=== PATIENT | male | born 1950 | race Caucasian/White ===

== ENCOUNTER 2016-08-31 10:39 | Inpatient (IN) | payer MEDICARE, BC ==
[~2016-08-31] VITALS: Ht 172.7 cm; Wt 80.1 kg
[~2016-08-31 10:39] MED LIST: ACAMPROSATE CA333 MG PO; COREG25 MG PO; DIFLUCAN DPS100 MG PO; DUONEB DPS3 ML IH; FLOMAX DPS0.4 MG PO; FLONASE 0.05% D16 GM NS; FOLIC ACID1 MG PO; GUAIFENESIN400 MG PO; HABITROL DPS21 MG TP; IMODIUM DPS2 MG PO; LEXAPRO DPS20 MG PO; MAGOX 400400 MG PO; MULTIPLE VITAM1 EACH PO; NEURONTIN DPS300 MG PO; NEURONTIN DPS400 MG PO; PEPCID DPS20 MG PO; POTASSIUM CHLO20 ME2 PO; PROTONIX40 MG PO; SPIRIVA18 MCG IH; SYMBICORT160 MCG/6 IH; TYLENOL DPS325 MG PO; VITAMIN B1100 MG PO; ZOCOR DPS20 MG PO
--- NOTE | 2016-09-02 10:52 | CO ---
ADMIT: 08/31/2016 RM/LOC: 309 [facility] MR#: [id number] [address] [address] PIOTR KNIGHT [facility] [place] [address] Consultation SEX: M AGE: 66 : 1950 DATE OF CONSULTATION: 08/31/2016 ATTENDING PHYSICIAN: Pipo Fountain CONSULTING PHYSICIAN: Haroldo Harrell MD REASON FOR CONSULTATION: Acute kidney injury. HISTORY OF PRESENT ILLNESS: The patient is a 66-year-old gentleman, who normally gets his care through the [facility]. He was admitted to the hospital earlier this year in May as well with GI bleed. He presents to the hospital now with weakness and diarrhea that has been going on for about 7 days. He has had no fevers, chills, or rigors. He has not had any brissa blood in his stools, but notes that his stools have been somewhat dark. He denies any dyspnea or cardiac complaints. He has been terribly weak and has not been able to eat anything orally. He has been drinking more 3/4 of a pint of vodka every day. He continues to smoke cigarettes on a daily basis. History is also obtained from his as well as his daughter, who are at his bedside. At the time of this encounter, he feels weak. Denies any skin rash. Denies any urinary complaints. He denies any [id number] medications. He feels weak, has diarrhea. Denies any vomiting. He has been having dry heaves. He has some nausea too. Complete review of systems is negative in detail except as mentioned in history of present illness above. PAST MEDICAL HISTORY: 1. Hypertension. 2. Coronary artery disease, status post bypass. 3. Chronic alcohol abuse. 4. Tobacco abuse. 5. COPD. 6. Depression. 7. Allergic rhinitis. 8. Gastroesophageal reflux disease. 9. Dyslipidemia. 10.BPH. MEDICATIONS: Reviewed and addressed in the chart. ALLERGIES: NO KNOWN DRUG ALLERGIES. SOCIAL HISTORY: He lives with his in [place]. He has a history of alcoholism as well as tobacco abuse. FAMILY HISTORY: No family history of chronic kidney disease or renal replacement therapy. ADMIT: 08/31/2016 RM/LOC: 309 [facility] MR#: [id number] [address] [address] PIOTR KNIGHT [address] [address] Consultation SEX: M AGE: 66 : 1950 PHYSICAL EXAMINATION: VITAL SIGNS: Temperature 99.6 Fahrenheit, pulse 92, and blood pressure is 87/60. GENERAL: He appears tired and is lying in bed. HEENT: Head is nontraumatic and normocephalic. Extraocular movements are intact. No conjunctival pallor. Dry mucosa. CHEST: Clear to auscultation. CVS: Tachycardic. S1, S2 heard. No rubs, murmurs, or gallops. ABDOMEN: Soft, nontender. EXTREMITIES: No edema. SKIN: No rash or nodules. NEUROLOGIC: Alert, awake, and oriented x3. He is able to move all his extremities. PSYCHIATRIC: Affect and memory within normal. LABORATORY DATA: Reviewed. BMP with sodium 130, potassium 3.2, creatinine is 1.9, hemoglobin 12.2, and albumin 2.9. Urinalysis with 1+ protein, trace blood, and negative leukocyte esterase. ASSESSMENT/PLAN: 1. Acute kidney injury - baseline creatinine is around 0.9. Acute kidney injury is prerenal in etiology. I agree with IV fluids and pressor support. Maintain hemodynamics to keep maps greater than 60 mmHg. Monitor kidney function closely. Avoid nephrotoxins such as NSAIDs, IV contrast, or Fleet enemas. 2. Hyponatremia - monitor. Likely secondary to volume depletion. 3. Hypokalemia - replete with potassium chloride. Thank you for this consultation. Please do not hesitate to contact with any questions. Haroldo Harrell MD/ tamara JOB #: [id number] CC: Pipo Fountain, Attending Physician Pipo Fountain, Family Physician
--- NOTE | 2016-09-03 10:08 | CO ---
ADMIT: 08/31/2016 RM/LOC: 309 [facility] MR#: [id number] [address] [facility] [address] [place] [id number] EUGENE PIOTR [place] [address] Consultation SEX: M AGE: 66 : 1950 DATE OF CONSULTATION: 08/31/2016 ATTENDING PHYSICIAN: Pipo Fountain CONSULTING PHYSICIAN: Devon Solorio MD ADDENDUM: Mr. Yap is seen, examined, and I have reviewed the chart, laboratory studies, CT scan. Currently, he denies any abdominal pain but has had diarrhea for a couple of weeks now. The last 2 days, he has had black stool with that. He has had some nausea and vomiting but no vomiting since admission. CT scan at admission suggested possible mesenteric ischemia. On exam, he has minimal abdominal tenderness and bowel sounds are present and normoactive. His lactic acid was mildly elevated at admission but not severely so. These things including his exams make ischemic bowel less likely. I have recommended proceeding with esophagogastroduodenoscopy for further evaluation of the antral and duodenal thickening seen on CT scan as well as the dark stool that he has had over the last couple of days and the anemia that he has had. He had an EGD demonstrating duodenal ulcers in May of this year. He is on current proton pump inhibitor therapy inpatient but had not been taking that as an outpatient. I discussed proceeding with EGD with Mr. Yap and he agrees with that plan. We will have further plan pending his progress. We will repeat his lactic acid levels tonight and in the morning to continue to evaluate for ischemic bowel. I have also reviewed Calixto Bonner's note and I am in agreement with his assessment, plan, and documentation. Devon Solorio MD/ tamara JOB #: [id number] CC: Pipo Fountain, Attending Physician Pipo Fountain, Family Physician
--- NOTE | 2016-09-05 21:37 | ER ---
ADMIT: 08/31/2016 RM/LOC: 309 [facility] MR#: [id number] [address] [address] IRVIN YAP [address] [place] [id number] Emergency Room Report SEX: M AGE: 66 : 1950 DATE: 08/31/2016 Irvin Yap is a 66-year-old gentleman brought to the hospital because of increasing weakness, which has been present for the past several days. It has gotten substantially worse to the point where he is now unable to get out of bed and his is no longer able to care for him. The gentleman himself has no complaints. His states he is excessively weak. He readily admits to drinking 750 mL of alcohol a day, vodka. Says he last drank yesterday. Complaining of some greenish diarrhea, but denied abdominal pain. He has had similar symptoms in the past, but never to this severity. REVIEW OF SYSTEMS: Significant for dark urine and generalized weakness. PAST HISTORY: Cardiac disease, he has had cardiac bypass. He has hypertension. He is an alcoholic and smokes heavily. PHYSICAL EXAMINATION: GENERAL: Reveals an elderly gentleman, in mild-to- moderate amount of distress. Generalized weakness noted. HEENT: Normocephalic and atraumatic. RESPIRATORY: Lungs were clear to auscultation. CARDIOVASCULAR: No murmurs. Regular rate and rhythm. ABDOMEN: Soft, nontender, with hypoactive bowel tones. EXTREMITIES: Without clubbing, cyanosis, or edema. MANAGER GAMES: No focal findings. Generalized weakness. LABORATORY DATA: Pertinent labs revealed white count 12.8, hemoglobin 12.9. Sodium 125, potassium 3.4, bicarb 20, BUN 38, creatinine 2.2, calcium 6.6, albumin 2.9, and lipase 532. Corrected calcium was 7.5. Parathyroid hormone was 181. Chest x-ray was unremarkable. Lactic acid 1.9. Hemoccult stool was positive. CT scan of the abdomen was suspicious for mesenteric ischemia with pneumatosis. The scan was limited, however, the IV contrast could not be given secondary to renal function. The patient remained hypotensive throughout his stay in the emergency room, was given IV hydration. I did discuss his care with Dr. Fountain who agreed to ICU admission. I also spoke with Dr. Solorio with the results of the CT scan. He recommended continued fluid resuscitation, Zosyn was begun in the Emergency Department. The patient was subsequently admitted with diagnoses of mesenteric ischemia, acute renal failure, and hypocalcemia. Linden Jones MD/ tamara JOB #: [id number] CC: Pipo Fountain MD, Attending Physician Pipo Fountain MD, Family Physician
[2016-09-08] MEDS ORDERED: CARAFATE DPS1 GM PO (14:06)
[2016-09-08] MEDS ORDERED: ASPIRIN EC81 MG PO (14:13)
--- NOTE | 2016-09-09 08:37 | HP ---
ADMIT: 08/31/2016 RM/LOC: 309 [facility] MR#: [id number] [address] [address] IRVIN KNIGHT [address] [place] [address] History and Physical SEX: M AGE: 66 : 1950 DATE OF SERVICE: 08/31/2016 CHIEF COMPLAINT: Diarrhea, hypotension. HISTORY OF PRESENT ILLNESS: Irvin is a 66-year-old white male, who came to the [facility] Emergency Department with the progressively worsening dizziness, fatigue, and diarrhea over the course of about a week to week and a half. He estimates he has been having 5-6 watery stools every day over the course of the last week. He has not been eating well. He does have a history of chronic alcohol abuse and dependence. He has been through treatment several times for this, but has not had any significant success with remission of his alcoholism. Several of his stools have been dark black and one of his stools down in the emergency department was found to be heme positive. In addition, on his initial evaluation through the ER, he was markedly hypotensive with blood pressures in the 70s over 40s and much of his hypotension was refractory to fluid resuscitation with normal saline. He is currently on a Levophed drip to maintain his MAPs around 60. Irvin was recently admitted to the hospital by my partner, Dr. Suresh as a [facility] patient back in May. At that time, he was having some coffee- grounds emesis. Workup during that hospitalization included an upper GI endoscopy showing candidal esophagitis and a nonbleeding duodenal ulcer. At the time of his discharge in May, he was recommended to go to [facility] for rehab. He did go to [facility] for very short period of time and then ultimately to the [facility] for drug and alcohol counseling. He only stayed for a week and then discharged himself AMA. PAST MEDICAL HISTORY: Remarkable for: 1. Alcohol dependence. 2. Chronic obstructive pulmonary disease. 3. History of duodenal ulcer. 4. History of candidal esophagitis. 5. Depression. 6. Gastroesophageal reflux disease. 7. Seasonal allergic rhinitis. 8. Hypertension. 9. Benign prostatic hypertrophy. 10.Hyperlipidemia. 11.Coronary artery disease, status post bypass. 12.Chronic tobacco abuse. PAST SURGICAL HISTORY: Upper GI endoscopy in May of 2016. ALLERGIES: NO KNOWN MEDICAL ALLERGIES. MEDICATIONS: His outpatient medications include: 1. Acamprosate 666 mg t.i.d. 2. ProAir two puffs q.4 hours p.r.n. 3. Tylenol 650 mg two tabs q.6 p.r.n. ADMIT: 08/31/2016 RM/LOC: 309 [facility] MR#: [id number] [address] [address] IRVIN KNIGHT [address] [place] [address] History and Physical SEX: M AGE: 66 : 1950 4. Aspirin 81 mg daily. 5. Symbicort 160, two puffs twice daily. 6. Carvedilol 25 mg twice daily. 7. Lexapro 20 mg daily. 8. Pepcid 20 mg daily. 9. Flonase 2 sprays in each nostril daily. 10.Folic acid 1 mg daily. 11.Neurontin 300 mg at bedtime. 12.Guaifenesin 400 mg tablets q.i.d. 13.Hydrochlorothiazide 12.5 mg daily. 14.Multivitamin daily. 15.Protonix 40 mg daily. 16.Simvastatin 20 mg at bedtime. 17.Flomax 0.4 mg at bedtime. 18.Thiamine 100 mg daily. 19.Spiriva 1 puff daily. SOCIAL HISTORY: He continues to drink in upwards of 3/4 of a pint of vodka every day. He is also smoker of approximately 1-1/2 packs per day over the last several years. He lives alone in [place]. He denies any other recreational drug use. FAMILY HISTORY: Noncontributory. REVIEW OF SYSTEMS: As per HPI. All others reviewed are negative. PHYSICAL EXAMINATION: VITAL SIGNS: Current blood pressure is 96/70 and that is on a Levophed drip. Pulse is 96, respirations 20, temp 99.6, O2 saturation is 94% on oxygen via nasal cannula. GENERAL: He is not in particularly talkative mood at this time. Most of his history is actually obtained from his , who is at the bedside and from previous documentation. He is appropriate with his responses. He does appear to be depressed. HEENT: Normocephalic, atraumatic. NECK: Supple. No lymphadenopathy. No thyromegaly. HEART: Regular rate and rhythm. No murmurs, gallops, or rubs. LUNGS: Clear to auscultation bilaterally. ABDOMEN: Distended, soft, nontender. No rebound, guarding, or masses. EXTREMITIES: No significant cyanosis, clubbing, or edema. LABORATORY AND X-RAY DATA: Hemoglobin since admission have been stable at 11.2, this is just down a little bit from his admission hemoglobin of 12.2. Procalcitonin was 1.6. Lactic acid was 1.9. CMP remarkable for a potassium of 3.1, sodium of 125, CO2 of 20, BUN of 38, creatinine 2.2. Calcium 6.6, phos was 3. AST is 54, lipase 532, magnesium 2.2. Occult blood test was positive. PT, PTT, INR remarkable only for a mildly elevated PTT at 32. Repeat BMP shows potassium to be 3.2 and a sodium of 130, creatinine has come down to 1.9 with aggressive IV fluid resuscitation. CT of his abdomen and ADMIT: 08/31/2016 RM/LOC: 309 [facility] MR#: [id number] [address] [address] [address]VIN KNIGHT [address] [place] [address] History and Physical SEX: M AGE: 66 : 1950 pelvis shows findings concerning for possible changes of mesenteric ischemia, moderate amount of generalized fluid infiltration throughout the mesenteric fat, abnormally thickened small bowel loops, suspected pneumatosis intestinalis in the left upper quadrant, and a possible distal gastric wall thickening, duodenal thickening, gastritis, and duodenitis is difficult to exclude. He has fatty infiltration of the liver. Stable left adrenal nodule. Diverticulosis of the colon without diverticulitis. ASSESSMENT: 1. Shock, likely secondary to dehydration from his diarrhea. 2. Alcohol abuse and dependence. 3. Acute kidney injury secondary to hypotension with a baseline creatinine about 1. 4. Hypokalemia, this is being replaced. 5. Acute pancreatitis secondary to his chronic alcohol abuse and dependence. 6. Heme-positive stools. 7. History of duodenal ulcer. 8. History of candidal esophagitis. 9. Chronic obstructive pulmonary disease. 10.Depression, poorly controlled. 11.Gastroesophageal reflux disease. 12.Seasonal allergic rhinitis. 13.Hypertension. 14.Benign prostatic hyperplasia. 15.Hyperlipidemia. 16.Chronic tobacco abuse. PLAN: Irvin will remain in the ICU until his hemodynamic compromise is improved. We are going to continue aggressive IV hydration. He will remain on a Levophed drip and we will titrate that to a MAP of 60. We will get an ADTC and a Social Work consult. I have started him on the CIWA protocol for his alcohol abuse and dependence as I suspect he is going to start withdrawing here in the next 24-48 hours. His last drink was about 24 hours ago. 1. With regard to his kidney injury, this is improving with IV hydration. We will recheck a BMP in the morning. 2. Hypokalemia, this is being replaced. Again, we will recheck his electrolytes in the morning and replace. I have started him on IV thiamine and folic acid as well as intravenous mag and a multivitamin ADMIT: 08/31/2016 RM/LOC: 309 [facility] MR#: [id number] [address] [address] IRVIN KNIGHT John [address] [place] [address] History and Physical SEX: M AGE: 66 : 1950 through his IV. 3. As for his heme-positive stools, General Surgery has been consulted. They are considering on upper and lower GI endoscopy in the morning, provided that hemodynamically he is stable. I am going to recheck a lipase in the morning and trend this down. He is n.p.o. at this time, so bowel rest hopefully will help with his lipase. He is advised that he needs to quit smoking and also advised that unless he make some changes with his lifestyle and choices he is making, his alcohol use and abuse is going to kill him. He indicated an understanding though, I do not get a good sense from him that he has any desire to change or quit at this point. I do wonder how his poorly-controlled depression is contributing to his willingness to accept this diagnosis and do something about it. Pipo Fountain MD/ tamara JOB #: [id number] CC: Pipo Fountain, Attending Physician Pipo Fountain, Family Physician
--- NOTE | 2016-09-09 08:41 | DS ---
ADMIT: 08/31/2016 RM/LOC: 402 [facility] MR#: [id number] [address] [address] IRVIN YAP [facility] [place] [address] Discharge Summary SEX: M AGE: 66 : 1950 ADMISSION DATE: 08/31/2016 DISCHARGE DATE: 09/07/2016 ADMITTING DIAGNOSES: 1. Hypovolemic shock. 2. Acute upper GI (gastrointestinal) bleed. 3. Alcohol abuse and dependence. 4. Acute kidney injury secondary to hypovolemic shock. 5. Hypokalemia. 6. Acute alcoholic pancreatitis. 7. Heme-positive stools. 8. History of duodenal ulcer. 9. History of candidal esophagitis. 10.Chronic obstructive pulmonary disease. 11.Depression. 12.Gastroesophageal reflux disease. 13.Seasonal allergic rhinitis. 14.Hypertension. 15.Benign prostatic hypertrophy. 16.Hyperlipidemia. 17.Chronic tobacco abuse. DISCHARGE DIAGNOSES: 1. Hypovolemic shock, resolved, likely secondary to a combination of diarrhea and upper GI (gastrointestinal) bleed. 2. Alcohol abuse and dependence. 3. Acute kidney injury secondary to hypotension, now resolved. 4. Hypokalemia. 5. Acute alcoholic pancreatitis, resolved. 6. Heme-positive stools. 7. Alcoholic gastritis without active hemorrhage. 8. Grade 1 nonbleeding esophageal varices. 9. Hypophosphatemia. 10.Hypokalemia. 11.Hypomagnesemia. 12.Urinary retention. 13.Benign prostatic hypertrophy. 14.History of duodenal ulcer. 15.History of candidal esophagitis. 16.Chronic obstructive pulmonary disease. 17.Depression. 18.Gastroesophageal reflux disease. 19.Seasonal allergic rhinitis. 20.Hypertension. 21.Benign prostatic hypertrophy. 22.Hyperlipidemia. 23.Chronic tobacco abuse. CONSULTATIONS: ADMIT: 08/31/2016 RM/LOC: 402 [facility] MR#: [id number] [address] [address] [place] [address] Discharge Summary SEX: M AGE: 66 : [address] Solorio, general surgery, consulted 08/31/2016 for upper GI bleed. 2. Dr. Harrell, nephrology, consulted on 08/31/2016 for an acute kidney injury. 3. Dr. Osuna, Critical Care Medicine, consulted on 08/31/2016. PROCEDURES: Upper GI endoscopy performed by Dr. Willie Nice, general surgery, on 09/01/2016 showing moderate to significant gastritis, no antral ulcers, grade 1 esophageal varices and no evidence of active hemorrhage, pathology showing reactive gastritis, negative for H pylori. HISTORY AND PHYSICAL EXAM: Mr. Yap is a 66-year-old gentleman, [facility], who [facility] to [facility] Emergency Department on 08/31/2016 with progressively worsening dizziness, fatigue and diarrhea over the course of about a week to a week and a half. He estimates that he had been having 5-6 watery stools every day over the course of that week and not eating very well. He has a history of chronic alcohol abuse and dependence and drinks in upwards of a bottle of vodka every day. He has apparently been through drug and alcohol treatment several times without any success or remission in his alcoholism. He notes that several of his stools had been dark black and one of his stools in the Emergency Department was found to be heme positive. His initial exam in the emergency department was remarkable for blood pressures with systolics in the 70s and diastolics in the 40s and this was despite aggressive fluid resuscitation with intravenous fluids. Irvin had been admitted by my partner, Dr. Suresh, approximately three months prior with upper GI bleeding secondary to his chronic alcohol abuse and dependence and at that time it he was recommended that he go to [facility] for rehab. By he and his 's report however he only stayed for about a week of rehab and then discharged himself AMA and went back to drinking. On his initial exam, his blood pressure was 96/70 on a Levophed drip and having had 2 L of colloid his pulse was 96, respirations were 20, he was afebrile and his O2 saturation was 94% on 2-3 L of oxygen nasal cannula. On his initial exam and indeed throughout his hospital stay he was not particularly talkative and much of his history was obtained from his . On his initial exam, hemoglobin was 11.2, ProcalAmine negative, lactic acid was 1.9. CMP showed a potassium of 3.12. Creatinine was 2.2. His baseline was about 1. Lipase was elevated at 532. Occult blood test was positive. Coags were unremarkable. CT of his abdomen and pelvis was suggestive for possible mesenteric ischemia with moderate amounts of generalized fluid infiltration throughout the mesenteric fat, abnormally thickened small bowel loops and suspected pneumatosis intestinalis in the left upper quadrant. He also had evidence of diverticulosis without diverticulitis and a stable left adrenal nodule. Irvin was subsequently admitted to the hospital to the ICU for further management, fluid resuscitation and for surgical consultation as well as Critical Care consult. HOSPITAL COURSE: Irvin's blood pressures were stabilized with a combination of intravenous colloid and Levophed. His blood pressure improved within 24 ADMIT: 08/31/2016 RM/LOC: 402 [facility] MR#: [id number] [address] [place] [id number] IRVIN YAP [address] [place] [address] Discharge Summary SEX: M AGE: 66 : 1950 hours and we were able to wean him off the Levophed drip. Dr. Harrell with Nephrology was consulted and did follow. Irvin's kidney function improved with the intravenous fluids. Throughout his hospital stay, he had problems with hypokalemia, hypomagnesemia and hypophosphatemia. Much of this was thought to be nutritional along with his problems with his diarrhea that he had had prior to admission. He remained very noncommittal about getting drug and alcohol treatment. He was evaluated by [facility] and recommendation was made that should he desire further drug and alcohol treatment that he should get these services through the [place]. Irvin was transferred out of the ICU on approximately day three to four of his admission. He was transferred to a med/surg bed. He had no further melanotic stools and his hemoglobins remained stable. He did have problems with hypoxemia requiring 3-4 L of oxygen throughout his hospital stay. However, we were able to wean that down to 1-2 L prior to discharge. He had problems with chronic cough also throughout his hospital stay and on his exam findings were suggestive for COPD with markedly diminished breath sounds and wheezing. He was started on prednisone, Zithromax and his inhaled corticosteroids and Spiriva were continued. He also did receive 2-3 doses of intravenous Lasix for small pleural effusions and interstitial edema. Irvin was evaluated by physical therapy and occupational therapy throughout his hospital stay. He had generalize malaise, deconditioning and weakness and his was concerned that he would not be able to meet his needs at home without additional care and help, which she did not think she could provide. A recommendation was made for him to go to skilled rehab for further rehabilitation. Finally, Irvin had issues with urinary retention following his ICU stay. Attempts were made to remove his Fuentes catheter which was placed on admission for strict intake and output purposes. However despite taking his Fuentes out, he had problems with urinary retention. Postvoid residual was up in the 600- 800 mL range despite being on his Flomax. A decision was made to replace his Fuentes catheter. Dr. French with Urology was consulted and recommended simply leaving the Fuentes catheter in for a period of 1 week and for further management of this as an outpatient. By the morning of 09/07/2016, Irvin was stable. It was felt that he could safely be discharged to [facility] with further management as an outpatient by his [place] provider. Discharge condition is poor. His overall health is poor, much of this is secondary to his chronic alcohol and tobacco use, both of which he was advised he needed to quit. DISPOSITION: He is being discharged to [facility]. DISCHARGE MEDICATIONS: Discharge medications will include: 1. Carafate 1 g before every meal. 2. Coreg 25 mg b.i.d. ADMIT: 08/31/2016 RM/LOC: 402 [facility] MR#: [id number] [address] [address] IRVIN YAP [address] [place] [address] Discharge Summary SEX: M AGE: 66 : 1950 3. Flomax 0.4 mg every night. 4. Folic acid 1 mg daily. 5. Lexapro 20 mg daily. 6. Magnesium oxide 400 mg p.o. b.i.d. 7. Neurontin 300 mg every night. 8. Protonix 40 mg b.i.d. 9. Therapeutic multivitamin daily. 10.Thiamine 100 mg daily. 11.Zocor 20 mg every night. 12.Symbicort 160, two puffs b.i.d. 13.DuoNeb every 4 hours. 14.Spiriva 1 puff daily. 15.Flonase 2 sprays in each nostril daily. 16.Tylenol 650 mg q.4 p.r.n. pain. 17.Acamprosate 666 mg t.i.d. 18.Aspirin 81 mg daily. 19.Guaifenesin 400 mg q.i.d. p.r.n. FOLLOWUP: I have asked that he follow up with his [facility] provider, Ph[facility] Deg[facility], within the week and that he should have a CBC, BMP, Mag phos and a chest x-ray prior to that appointment. Also asked that he follow up with Dr. French with urology within the weeks for further management of his Fuentes catheter. Pipo Fountain MD/ diane JOB #: [id number] CC: Pipo Fountain MD, Attending Physician Pipo Fountain MD, Family Physician
--- NOTE | 2016-09-12 19:26 | CO ---
ADMIT: 08/31/2016 RM/LOC: 309 [facility] MR#: [id number] [address] [address] PIOTR KNIGHT [facility] [place] [address] Consultation SEX: M AGE: 66 : 1950 DATE OF CONSULTATION: 08/31/2016 ATTENDING PHYSICIAN: Pipo Fountain CONSULTING PHYSICIAN: Lamin Osuna MD REASON FOR CONSULTATION: Hypertension, critical care management, possible GI bleed-ischemic bowel. HISTORY OF PRESENT ILLNESS: This is a 66-year-old white male, who is not a very good historian. The patient apparently has been having problems with getting up and around. He said this has been going on for couple of weeks. His has to help him. All he does is going to the bathroom and comes back. He has been having a lot of diarrhea on and off dating back at least six months. He had last was, maybe, a week or so, it has been black and tarry. The patient denied any vomiting or hematemesis. Denies hemoptysis. Does have some shortness of breath. No chest pain. The patient denies fever or chills. The patient does have a history of ethanol abuse and tobacco use. He smoked, he said, a pack and a half a day. He has been smoking at least from the age of 19. PAST MEDICAL HISTORY: History of chronic ethanol abuse; history of chronic tobacco abuse; COPD; history of coffee-grounds emesis in the past; coronary artery disease, status post CABG; chronic depression; allergic rhinitis; chronic pain; history of chronic diarrhea; history of GERD; hyperlipidemia; and BPH. MEDICATIONS: Reviewed and documented in chart. Switched from MDIs to Nicoleb. REVIEW OF SYSTEMS: All intake sheet reviewed, nil of note than in HIP. ALLERGIES: NO KNOWN MEDICAL ALLERGIES. SOCIAL HISTORY: The patient's tobacco use as mentioned above. Has a long history of chronic ethanol abuse. He continues to drink daily. FAMILY HISTORY: Reviewed and noncontributory. PHYSICAL EXAMINATION: VITAL SIGNS: His blood pressure was in the low 90s. MAP is in 72. His blood pressure on admission to the ER was low in the mid 70s. The patient has been given at least 4 L of fluids. He started on Levophed. His pulse is 92, respirations in the mid teens. He was afebrile. Saturation initially was 94% on room air, but it has been trending down and he is now on 2 L of O2. HEENT: Did not show any acute changes. NECK: Supple. No nodes felt. RESPIRATORY SYSTEM: Showed fair breath sounds. No adventitious sounds. CARDIOVASCULAR SYSTEM: Showed S1-S2, regular rate and rhythm. ABDOMEN: Distended, nontender. Liver and spleen could not be felt. No masses ADMIT: 08/31/2016 RM/LOC: 309 [facility] MR#: [id number] [address] [place] [phone] [place] [address] Consultation SEX: M AGE: 66 : 1950 felt. CENTRAL NERVOUS SYSTEM: He was awake, able to move all four limbs. Did not appear to have any focal neurological signs. EXTREMITIES: Showed no cyanosis, clubbing, jaundice, or edema. LABORATORY DATA: His hemoglobin is 12.2, white count was 12.8, and platelet count of 93%. INR of 1.03. PTT 32. His creatinine is 2.2. Calcium 6.6. Sodium 125 and potassium 3.1. Lactate 1.9. Lipase is mildly elevated. CT scan of his abdomen and pelvis was noted, consider changes of mesenteric ischemia. Diffuse fatty infiltration of the liver was noted. CT scan of his chest showed no acute changes. ASSESSMENT AND PLAN: 1. Hypertension, probably secondary to #2. Continue fluid resuscitation but would defer any further boluses because of his renal function. Renal will monitor fluids. Continue Levophed. Keep MAP above 65. 2. Black tarry stools, probably gastrointestinal bleed. Awaiting endoscopy. 3. Hypoxemia. Continue O2. 4. Avufc-yn-oqkagni renal failure. 5. History of chronic obstructive pulmonary disease. Continue tobacco use. Agree with switching him to DuoNeb. 6. Ethanol abuse. 7. Coronary artery disease, status post coronary artery bypass graft. 8. Problems with moving around-myopathy. Need to consider alcohol-related neurological disease. 9. Gastroesophageal reflux disease. Thank you for giving me the opportunity to be involved in his care. Should you have any questions, please feel free to get in touch with me. Lamin Osuna MD/ tamara JOB #: [id number] CC: Pipo Fountain, Attending Physician Pipo Fountain, Family Physician
--- NOTE | 2016-09-13 20:44 | CO ---
ADMIT: 08/31/2016 RM/LOC: 309 [facility] MR#: [id number] [address] [address] IRVIN KNIGHT [address] [place] [address] Consultation SEX: M AGE: 66 : 1950 DATE OF CONSULTATION: 08/31/2016 ATTENDING PHYSICIAN: Pipo Fountain CONSULTING PHYSICIAN: Devon Solorio MD REASON FOR CONSULTATION: Weakness and shortness of breath. HISTORY OF PRESENT ILLNESS: Irvin is a very pleasant 66-year-old male, who states that for the last 2 weeks has noticed ongoing weakness and shortness of breath. It has gotten to the point where he cannot walk, but 5 steps before his symptoms are produced. He also has his assist him getting from a sitting to a standing position. He also noticed dark stools approximately 2 days ago. He denies any pain, nausea, vomiting, diarrhea, or constipation. Because of his symptoms, he came in through the ER, which at that time had a full workup and overall did not look like the patient was doing well. He had a white count. His hemoglobin dropped. Fecal blood test was positive, and CAT scan of his abdomen revealed kind of some generalized inflammation specifically around the pancreas. Small bowel with some possible pneumatosis. Please see below. The patient denies taking any blood thinning medications. He has had previous EGD and colonoscopy before. PAST MEDICAL HISTORY: Significant for GERD, peptic ulcer disease, COPD, coronary artery disease, depression, allergic rhinitis, hyperlipidemia, BPH, chronic pain, and diarrhea. PAST SURGICAL HISTORY: 1. Last EGD was on 05/29/2016, which showed fungal esophagitis, nonbleeding ulcers, and hiatal hernia. 2. Heart stent in 2009. 3. Four-vessel bypass in 2009. 4. Surgery for subarachnoid hemorrhage. 5. Ventral hernia repair. 6. Appendectomy. 7. Colonoscopy. ALLERGIES: NO KNOWN DRUG ALLERGIES. MEDICATIONS: The patient denies any blood thinning medications, but he does take an 80 mg aspirin daily. FAMILY HISTORY: Noncontributory. SOCIAL HISTORY: The patient is an alcohol and tobacco user. Drinks 3/4 of a 750 daily and smokes 1-1/2 packs a day. He denies any illicit drug use. REVIEW OF SYSTEMS: CONSTITUTIONAL: The patient denies any fever, chills, or night sweats. The rest of a comprehensive 10-point review of systems was performed, and all other systems are negative. ADMIT: 08/31/2016 RM/LOC: 309 [facility] MR#: [id number] [address] [address] IRVIN KNIGHT [address] [place] [id number] Consultation SEX: M AGE: 66 : 1950 PHYSICAL EXAMINATION: GENERAL: The patient is in no acute distress. He is alert and oriented. HEENT: Head is normocephalic and atraumatic. EOMS are intact. Conjunctivae are free of icterus, erythema, or pallor. Pinnae free of deformities. Nose is midline. No tracheal deviation. NECK: Supple. SKIN: Negative for jaundice, clubbing, edema, pallor, or cyanosis. LUNGS: Normal respiratory effort. HEART: Distal pulses intact. Hypotensive. Regular rate and rhythm. ABDOMEN: Soft, nondistended, and nontender. NEUROLOGIC: Grossly intact. DIAGNOSTIC IMAGING: CT of abdomen pelvis revealed fat stranding small amount of peripancreatic fluid with generalized mesenteric fat stranding as well, gastric wall thickening with distal stomach and proximal duodenum, multifocal areas of small bowel wall thickening, and possible pneumatosis involving loops of jejunum. LABORATORY DATA: Hemoglobin currently 11.2 down from 12.2. Occult blood positive. Lactic acid 1.9. CMP revealed creatinine 2.2 and lipase 532. ASSESSMENT: 1. Upper gastrointestinal bleed. 2. Pancreatitis. 3. Possible ischemic bowel. PLAN: Given the patient's condition, he has been started on pressors and admitted to the ICU. We will watch his hemoglobins, but due to the rate of drop, I am going to plan to put him on for EGD for Dr. Solorio tomorrow morning. His creatinine is elevated, so hopefully with dilution, in a few days we can repeat a CT abdomen and pelvis with contrast to further assess the pathology in his abdomen. In the meantime, we will continue the IV antibiotics Protonix and follow him closely. I discussed this plan with the patient and his , who was present during my assessment. They are in agreement of this plan, had all their questions answered and would like to proceed. Thank your for the consultation of this patient. ITZEL Gaona / Devon Solorio MD / tamara JOB #: [id number] CC: Pipo Fountain, Attending Physician Pipo Fountain, Family Physician
--- NOTE | 2016-09-15 13:26 | OR ---
ADMIT: 08/31/2016 RM/LOC: 309 [facility] MR#: [id number] [address] [address] PIOTR KNIGHT [address] [place] [address] Operative/Delivery Room Report SEX: M AGE: 66 : 1950 SURGERY DATE: 09/01/2016 SURGEON: Willie Nice MD PREOPERATIVE DIAGNOSES: Question of gastrointestinal bleed and anemia. POSTOPERATIVE DIAGNOSES: Moderate to significant gastritis. No antral ulcers. Grade 1 esophageal varices. No signs of bleeding. PROCEDURE: EGD with biopsy of the gastric antrum, rule out H. pylori. ANESTHESIA: MAC anesthesia. ESTIMATED BLOOD LOSS: Less than 5 mL. INDICATION FOR PROCEDURE: Please see H and P. DESCRIPTION OF PROCEDURE: After the risks, benefits, possible complications, and the alternatives had been explained, and informed consent had been obtained, the patient was taken back to the operating room, underwent sedation. The flexible EGD scope was introduced. The distal esophagus as seen in picture #1, hiatal hernia in picture #4, maneuvered through these through the stomach down into the second portion of the duodenum. The duodenum was inspected thoroughly. No signs of ulcers there. He had some back in May. The gastric antrum does show moderate amount of gastritis, but no actual ulcers or no signs of active bleeding and I did do biopsies here. The remainder of the stomach was inspected without any other mass or lesions noted. The scope was slowly withdrawn. There was, like I said, kind of a grade 1 varices, but no signs of any other significant bleeding or esophagitis. The scope was removed and the procedure terminated. Tolerated it well, was taken to recovery room in stable and satisfactory condition. Willie Nice MD/ tamara JOB #: [id number] CC: Pipo Fountain, Attending Physician Pipo Fountain, Family Physician
== END 2016-09-07 14:43 | DRG 377 ==
LOC: ER 10:39 → 4PCU 12:25 → 3ICU 12:25 → 4PCU 09-02 10:17
PROVIDERS: ADMIT Family Medicine
PROC: HZ2ZZZZ Detoxification Services for Substance Abuse Treatment (ICD-10-PCS; 2016-08-31)
PROC: 0DB68ZX Excision of Stomach, Via Natural or Artificial Opening Endoscopic, Diagnostic (ICD-10-PCS; principal; 2016-09-01)
DX: K92.1 Melena (principal); K85.20 Alcohol induced acute pancreatitis without necrosis or infection; R57.1 Hypovolemic shock; N17.9 Acute kidney failure, unspecified; L89.313 Pressure ulcer of right buttock, stage 3; J44.9 Chronic obstructive pulmonary disease, unspecified; E86.0 Dehydration; E87.1 Hypo-osmolality and hyponatremia; K29.20 Alcoholic gastritis without bleeding; I85.10 Secondary esophageal varices without bleeding; R19.7 Diarrhea, unspecified; E87.6 Hypokalemia; I12.9 Hypertensive chronic kidney disease with stage 1 through stage 4 chronic kidney disease, or unspecified chronic kidney disease; N18.9 Chronic kidney disease, unspecified; R09.02 Hypoxemia; F10.20 Alcohol dependence, uncomplicated; E83.39 Other disorders of phosphorus metabolism; E83.42 Hypomagnesemia; N40.1 Benign prostatic hyperplasia with lower urinary tract symptoms; R33.9 Retention of urine, unspecified; E83.51 Hypocalcemia; I25.2 Old myocardial infarction; F32.9 Major depressive disorder, single episode, unspecified; F17.210 Nicotine dependence, cigarettes, uncomplicated; K21.9 Gastro-esophageal reflux disease without esophagitis; J30.9 Allergic rhinitis, unspecified; M19.90 Unspecified osteoarthritis, unspecified site; E78.5 Hyperlipidemia, unspecified; I25.10 Atherosclerotic heart disease of native coronary artery without angina pectoris; Z79.82 Long term (current) use of aspirin; Z95.1 Presence of aortocoronary bypass graft; Z87.11 Personal history of peptic ulcer disease